=== PATIENT | male | born 1930 | race Caucasian/White ===

== ENCOUNTER 2017-03-27 14:51 | Inpatient (IN) | payer MEDICARE, OTHER ==
[~2017-03-27] VITALS: Ht 182.9 cm; Wt 90.2 kg
[2017-03-27] MEDS ORDERED: GABA300C10 PO (15:21)
[2017-03-27] MEDS ORDERED: TAMS0.4C2 PO (15:21)
[2017-03-27] MEDS ORDERED: LEVO25TA4 PO (15:21)
[2017-03-27] MEDS ORDERED: APIX5TAB PO (15:21)
[2017-03-27] MEDS ORDERED: ATOR40TA78 PO (15:21)
[2017-03-27] MEDS ORDERED: CALC1TAB2 PO (15:21)
[2017-03-27] MEDS ORDERED: METF500T4 PO (15:21)
[2017-03-27] MEDS ORDERED: CHOL200074 PO (15:21)
[2017-03-27] MEDS ORDERED: MULT-717 PO (15:21)
[2017-03-27] MEDS ORDERED: LISI-167 PO (15:21)
[2017-03-27] MEDS ORDERED: METO50TA82 PO (15:21)
[2017-03-27] MEDS ORDERED: SODIUM CHLORIDE FLUSH 10ML SYR IVF ONE (15:30)
[2017-03-27 15:39] LABS: MEAN CORPUSCULAR HEMOGLOBIN 27.7 pg (27.5-34.5); MEAN CORPUSCULAR HGB CONC 33.2 g/dL (33.2-36.2); MEAN CORPUSCULAR VOLUME 83.4 fL (81-97); MEAN PLATELET VOLUME 9.7 fL (7.4-10.4); PLATELET COUNT 165 x10^3/uL (130-400); RED BLOOD COUNT 5.19 x10^6/uL (4.38-5.82); RED CELL DISTRIBUTION WIDTH 16.5 % (9.4-14.8)
[2017-03-27 15:42] LABS: INTERNATIONAL NORMALIZED RATIO 1.16 (0.93-1.1)
[2017-03-27 15:45] LABS: ALANINE AMINOTRANSFERASE 382 U/L (12-78); ALBUMIN 2.8 g/dL (3.4-5.0); ANION GAP 9 mmol/L (5-15); CALCIUM 8.4 mg/dL (8.5-10.1); CHLORIDE 106 mmol/L (98-107); CREATININE 1.01 mg/dL (0.7-1.3)
[2017-03-27 15:47] LABS: ALKALINE PHOSPHATASE 157 U/L (45-117); BILIRUBIN,TOTAL 2.3 mg/dL (0.2-1.0); TOTAL PROTEIN 7.2 g/dL (6.4-8.2)
[2017-03-27 15:50] LABS: TROPONIN I < 0.015 ng/mL (0.000-0.045)
[2017-03-27 15:52] LABS: MD YES
[2017-03-27 15:55] LABS: <PLATELET ESTIMATE> ADEQUATE; <RBC MORPHOLOGY> NORMAL; LYMPH#(MANUAL) 0.98 x10^3/uL (1-3.4); LYMPHS% (MANUAL) 5 % (22-44); MONOS#(MANUAL) 3.51 x10^3/uL (0.3-2.7); MONOS% (MANUAL) 18 % (2-9); SEG#(MANUAL) 15.02 x10^3/uL (1.8-6.8); SEGS% (MANUAL) 77 % (42-75)
[2017-03-27 15:56] LABS: LARGE PLATELETS 1+
[2017-03-27] MEDS ORDERED: OMNIPAQUE 350 MG/ML, 100ML BOTTLE ONE (16:18)
[2017-03-27] MEDS ORDERED: hydrALAzine 20 MG/ML, 1ML IVPush PRN (18:30)
[2017-03-27] MEDS ORDERED: ONDANSETRON 2MG/ML, 2ML IVPush PRN (18:30)
[2017-03-27] MEDS ORDERED: BISACODYL 10 MG SUPP PR PRN (18:30)
[2017-03-27 18:35] LABS: HEMOGLOBIN A1C 6.5 % (4.2-6.3)
[2017-03-27] MEDS ORDERED: HEPARIN 5,000 UNITS/ML, 1ML ONE (19:28)
[2017-03-27] MEDS: SODIUM CHLORIDE 0.9% 1,000 ML IV SCH (19:35)
[2017-03-27] MEDS: HEPARIN 5,000 UNITS/ML, 1ML SQ SCH (19:35)
[2017-03-27] MEDS: INSULIN ASPART 100 UNITS/ML, PEN SQ-INSULIN SCH (19:44)
[2017-03-27] MEDS ORDERED: MAGNESIUM SULFATE PMX 2GM/50ML 50 ML IV ONE (20:30)
[2017-03-27 21:10] VITALS: BP 165/80
[2017-03-27] MEDS: morphine SULFATE 10 MG/ML, 1ML IVPush PRN (22:35)
[2017-03-27 22:52] VITALS: BP 165/80
[2017-03-27 23:08] LABS: MICROSCOPIC NOT IND
[2017-03-27 23:23] LABS: CULTURE INDICATED? NO
[2017-03-28 02:56] VITALS: BP 133/64
[2017-03-28] MEDS: HEPARIN 5,000 UNITS/ML, 1ML SQ SCH ×3 (03:07→16:37)
[2017-03-28] MEDS: morphine SULFATE 10 MG/ML, 1ML IVPush PRN ×4 (03:10→20:46)
[2017-03-28] MEDS: INSULIN ASPART 100 UNITS/ML, PEN SQ-INSULIN SCH ×4 (03:11→20:00)
[2017-03-28 05:24] LABS: CHLORIDE 109 mmol/L (98-107)
[2017-03-28 05:32] LABS: ALANINE AMINOTRANSFERASE 286 U/L (12-78); ALBUMIN 2.5 g/dL (3.4-5.0); ALKALINE PHOSPHATASE 134 U/L (45-117); ANION GAP 8 mmol/L (5-15); BILIRUBIN,TOTAL 1.1 mg/dL (0.2-1.0); CALCIUM 7.8 mg/dL (8.5-10.1); CREATININE 0.81 mg/dL (0.7-1.3); TOTAL PROTEIN 6.4 g/dL (6.4-8.2)
[2017-03-28 06:12] LABS: MEAN CORPUSCULAR HEMOGLOBIN 27.2 pg (27.5-34.5); MEAN CORPUSCULAR HGB CONC 32.7 g/dL (33.2-36.2); MEAN CORPUSCULAR VOLUME 83.3 fL (81-97); MEAN PLATELET VOLUME 10.3 fL (7.4-10.4); PLATELET COUNT 167 x10^3/uL (130-400); RED CELL DISTRIBUTION WIDTH 16.1 % (9.4-14.8)
[2017-03-28 06:29] LABS: BASOPHILS # (AUTO) 0.03 x10^3/uL (0-0.1); BASOPHILS % (AUTO) 0 % (0-1); EOSINOPHILS % (AUTO) 0 % (1-7); LYMPHOCYTES # (AUTO) 1.61 x10^3/uL (1-3.4); LYMPHOCYTES % (AUTO) 10 % (22-44); MD SCAN; MONOCYTES % (AUTO) 18 % (2-9); NEUTROPHILS # (AUTO) 12.38 x10^3/uL (1.8-6.8); NEUTROPHILS % (AUTO) 73 % (42-75)
[2017-03-28] MEDS: SODIUM CHLORIDE 0.9% 1,000 ML IV SCH ×3 (08:07→23:12)
[2017-03-28 08:30] VITALS: BP 149/67
[2017-03-28 14:45] VITALS: BP 149/74
[2017-03-28 16:30] LABS: TROPONIN I < 0.015 ng/mL (0.000-0.045)
[2017-03-28 18:57] VITALS: BP 137/72
[2017-03-28 21:20] LABS: TROPONIN I < 0.015 ng/mL (0.000-0.045)
[2017-03-29] MEDS: HEPARIN 5,000 UNITS/ML, 1ML SQ SCH ×3 (01:47→16:30)
[2017-03-29] MEDS: INSULIN ASPART 100 UNITS/ML, PEN SQ-INSULIN SCH ×4 (01:48→20:08)
[2017-03-29 02:43] VITALS: BP 142/79
[2017-03-29 06:58] VITALS: BP 162/78
[2017-03-29 07:08] LABS: MEAN CORPUSCULAR HEMOGLOBIN 28.3 pg (27.5-34.5); MEAN CORPUSCULAR HGB CONC 33.7 g/dL (33.2-36.2); MEAN CORPUSCULAR VOLUME 83.9 fL (81-97); MEAN PLATELET VOLUME 9.4 fL (7.4-10.4); PLATELET COUNT 149 x10^3/uL (130-400); RED BLOOD COUNT 5.31 x10^6/uL (4.38-5.82); RED CELL DISTRIBUTION WIDTH 16.4 % (9.4-14.8)
[2017-03-29 07:09] LABS: MD YES
[2017-03-29 07:16] LABS: ALANINE AMINOTRANSFERASE 171 U/L (12-78); ALBUMIN 2.5 g/dL (3.4-5.0); ANION GAP 8 mmol/L (5-15); CALCIUM 7.9 mg/dL (8.5-10.1); CHLORIDE 112 mmol/L (98-107); CREATININE 0.77 mg/dL (0.7-1.3)
[2017-03-29 07:18] LABS: ALKALINE PHOSPHATASE 115 U/L (45-117); BILIRUBIN,TOTAL 0.9 mg/dL (0.2-1.0); TOTAL PROTEIN 6.6 g/dL (6.4-8.2)
[2017-03-29 07:25] LABS: ANISOCYTOSIS 1+; BAND#(MANUAL) 0.77 x10^3/uL; BANDS%(MANUAL) 4 % (0-7); EOS#(MANUAL) 0.19 x10^3/uL (0.0-0.4); EOS% (MANUAL) 1 % (1-7); LYMPH#(MANUAL) 1.73 x10^3/uL (1-3.4); LYMPHS% (MANUAL) 9 % (22-44); MONOS#(MANUAL) 3.46 x10^3/uL (0.3-2.7); MONOS% (MANUAL) 18 % (2-9); SEG#(MANUAL) 13.06 x10^3/uL (1.8-6.8); SEGS% (MANUAL) 68 % (42-75)
[2017-03-29 07:26] LABS: <PLATELET ESTIMATE> ADEQUATE; <PLT MORPHOLOGY> NORMAL PLT MORPH; POLYCHROMASIA 1+
[2017-03-29] MEDS: SODIUM CHLORIDE 0.9% 1,000 ML IV SCH (07:58)
[2017-03-29] MEDS ORDERED: REGADENOSON 0.4 MG/5 ML SYRINGE ONE (08:09)
[2017-03-29 09:43] LABS: INTERNATIONAL NORMALIZED RATIO 1.17 (0.93-1.1); PROTHROMBIN TIME 12.1 Seconds (9.6-11.5)
[2017-03-29] MEDS: TAMSULOSIN 0.4 MG CAP.ER.24H PO SCH (11:30)
[2017-03-29] MEDS: LEVOTHYROXINE 25 MCG TABLET PO SCH (11:38)
[2017-03-29] MEDS: LISINOPRIL 10 MG TABLET PO SCH (11:38)
[2017-03-29 14:45] VITALS: BP 151/71
[2017-03-29] MEDS ORDERED: SODIUM CHLORIDE 0.9% 1,000 ML IV SCH (18:06)
[2017-03-29 19:34] VITALS: BP 159/79
[2017-03-29] MEDS: METOPROLOL TARTRATE 50 MG TABLET PO SCH (20:06)
[2017-03-30] VITALS (8 sets, daily range): BP systolic 116–166; BP diastolic 67–84
[2017-03-30] MEDS: HEPARIN 5,000 UNITS/ML, 1ML SQ SCH ×3 (01:00→17:00)
[2017-03-30] MEDS: INSULIN ASPART 100 UNITS/ML, PEN SQ-INSULIN SCH ×4 (02:18→21:24)
[2017-03-30 05:58] LABS: MEAN CORPUSCULAR HEMOGLOBIN 29.2 pg (27.5-34.5); MEAN CORPUSCULAR HGB CONC 34.1 g/dL (33.2-36.2); MEAN CORPUSCULAR VOLUME 85.7 fL (81-97); MEAN PLATELET VOLUME 10.4 fL (7.4-10.4); PLATELET COUNT 139 x10^3/uL (130-400); RED BLOOD COUNT 4.92 x10^6/uL (4.38-5.82); RED CELL DISTRIBUTION WIDTH 16.5 % (9.4-14.8)
[2017-03-30 06:10] LABS: ALBUMIN 2.4 g/dL (3.4-5.0); ANION GAP 9 mmol/L (5-15); CALCIUM 7.8 mg/dL (8.5-10.1); CHLORIDE 111 mmol/L (98-107)
[2017-03-30 06:13] LABS: ALANINE AMINOTRANSFERASE 114 U/L (12-78); ALKALINE PHOSPHATASE 104 U/L (45-117); BILIRUBIN,TOTAL 1.2 mg/dL (0.2-1.0); CREATININE 0.66 mg/dL (0.7-1.3); TOTAL PROTEIN 6.5 g/dL (6.4-8.2)
[2017-03-30] MEDS ORDERED: BUPIVACAINE/PF 0.25% ONE (06:25)
[2017-03-30] MEDS ORDERED: EPINEPHRINE 1 MG/ML, 1ML ONE (06:26)
[2017-03-30 06:44] LABS: MD YES
[2017-03-30 06:47] LABS: BAND#(MANUAL) 0.16 x10^3/uL; BANDS%(MANUAL) 1 % (0-7); EOS#(MANUAL) 0.16 x10^3/uL (0.0-0.4); EOS% (MANUAL) 1 % (1-7); LYMPH#(MANUAL) 2.27 x10^3/uL (1-3.4); LYMPHS% (MANUAL) 14 % (22-44); MONOS#(MANUAL) 2.92 x10^3/uL (0.3-2.7); MONOS% (MANUAL) 18 % (2-9); SEG#(MANUAL) 10.69 x10^3/uL (1.8-6.8); SEGS% (MANUAL) 66 % (42-75)
[2017-03-30 06:49] LABS: <PLATELET ESTIMATE> ADEQUATE; ANISOCYTOSIS 1+; LARGE PLATELETS 1+; POLYCHROMASIA 1+
[2017-03-30] MEDS ORDERED: LIDOCAINE-MPF 2% ,5ML ONE (06:54)
[2017-03-30] MEDS ORDERED: PROPOFOL 10 MG/ML, 20ML ONE (06:54)
[2017-03-30] MEDS ORDERED: ROCURONIUM 10 MG/ML,10ML ONE (06:55)
[2017-03-30] MEDS ORDERED: FENTANYL PF 100 MCG/2ML ONE (07:25)
[2017-03-30] MEDS ORDERED: CEFOTETAN PMX 2GM/50ML 50 ML ONE (07:25)
[2017-03-30] MEDS ORDERED: BUPIVACAINE/PF-EPI 0.25% 1:200K IM ONE (07:26)
[2017-03-30] MEDS ORDERED: ONDANSETRON 2MG/ML, 2ML ONE (07:30)
[2017-03-30] MEDS ORDERED: DEXAMETHASONE 4 MG/ML, 1ML ONE (07:30)
[2017-03-30] MEDS ORDERED: NEOSTIGMINE 1 MG/ML, 10ML ONE (07:41)
[2017-03-30] MEDS ORDERED: GLYCOPYRROLATE 0.2MG/1ML, 5ML ONE (07:42)
[2017-03-30] MEDS ORDERED: FENTANYL PF 100 MCG/2ML IV PRN (08:00)
[2017-03-30] MEDS ORDERED: morphine SULFATE 10 MG/ML, 1ML IV PRN (08:00)
[2017-03-30] MEDS ORDERED: ONDANSETRON 2MG/ML, 2ML IVPush PRN (08:00)
[2017-03-30] MEDS ORDERED: HYDROcodone/APAP 7.5-325MG/15ML UDC ONE (08:26)
[2017-03-30] MEDS ORDERED: HYDROcodone/APAP 7.5-325MG/15ML UDC PO PRN (08:30)
[2017-03-30] MEDS ORDERED: HYDROcodone/APAP 5/325 TABLET PO PRN (09:30)
[2017-03-30] MEDS ORDERED: SODIUM CHLORIDE 0.9%, 500ML IV PRN (09:30)
[2017-03-30] MEDS: LEVOTHYROXINE 25 MCG TABLET PO SCH (09:40)
[2017-03-30] MEDS: TAMSULOSIN 0.4 MG CAP.ER.24H PO SCH (09:40)
[2017-03-30] MEDS: LACTATED RINGERS 1,000 ML IV SCH ×2 (09:41→23:02)
[2017-03-30] MEDS: LISINOPRIL 10 MG TABLET PO SCH (12:53)
[2017-03-30] MEDS: METOPROLOL TARTRATE 50 MG TABLET PO SCH (21:25)
[2017-03-31 02:00] VITALS: BP 169/83
[2017-03-31] MEDS: LEVOTHYROXINE 25 MCG TABLET PO SCH (05:12)
[2017-03-31] MEDS: HEPARIN 5,000 UNITS/ML, 1ML SQ SCH (05:13)
[2017-03-31 05:50] LABS: MEAN CORPUSCULAR HGB CONC 34.1 g/dL (33.2-36.2); MEAN CORPUSCULAR VOLUME 87.9 fL (81-97); RED BLOOD COUNT 4.43 x10^6/uL (4.38-5.82); RED CELL DISTRIBUTION WIDTH 16.6 % (9.4-14.8)
[2017-03-31 05:54] LABS: CHLORIDE 107 mmol/L (98-107)
[2017-03-31 06:09] LABS: ANION GAP 6 mmol/L (5-15); CALCIUM 7.9 mg/dL (8.5-10.1); CREATININE 0.71 mg/dL (0.7-1.3); MD YES
[2017-03-31 06:10] LABS: ALANINE AMINOTRANSFERASE 92 U/L (12-78); ALBUMIN 2.3 g/dL (3.4-5.0); ALKALINE PHOSPHATASE 99 U/L (45-117); BILIRUBIN,TOTAL 0.9 mg/dL (0.2-1.0); MEAN PLATELET VOLUME 10.8 fL (7.4-10.4); PLATELET COUNT 137 x10^3/uL (130-400); TOTAL PROTEIN 6.2 g/dL (6.4-8.2)
[2017-03-31 06:12] LABS: BAND#(MANUAL) 0.16 x10^3/uL; BANDS%(MANUAL) 1 % (0-7); LYMPHS% (MANUAL) 12 % (22-44); MONOS#(MANUAL) 3.79 x10^3/uL (0.3-2.7); MONOS% (MANUAL) 24 % (2-9); SEG#(MANUAL) 9.95 x10^3/uL (1.8-6.8); SEGS% (MANUAL) 63 % (42-75)
[2017-03-31 06:13] LABS: <PLATELET ESTIMATE> ADEQUATE; ANISOCYTOSIS 1+; LARGE PLATELETS 1+; POLYCHROMASIA 1+
[2017-03-31] MEDS: INSULIN ASPART 100 UNITS/ML, PEN SQ-INSULIN SCH ×3 (07:00→16:00)
[2017-03-31 07:42] VITALS: BP 153/85
[2017-03-31] MEDS ORDERED: APIXABAN 5 MG TABLET PO SCH (09:00)
[2017-03-31] MEDS: TAMSULOSIN 0.4 MG CAP.ER.24H PO SCH (09:20)
[2017-03-31] MEDS ORDERED: POLYETHYLENE GLYCOL 17 GM PACKET NG PRN (09:30)
[2017-03-31] MEDS ORDERED: DOCUSATE 100 MG CAPSULE PO PRN (09:30)
[2017-03-31] MEDS: LISINOPRIL 10 MG TABLET PO SCH (13:35)
[2017-03-31 14:30] VITALS: BP 122/72
[2017-03-31] MEDS: METOPROLOL TARTRATE 50 MG TABLET PO SCH (17:44)
[2017-03-31] MEDS ORDERED: ACET325T14 PO (18:31)
[2017-03-31 19:01] VITALS: BP 121/68
== END 2017-03-31 20:43 | disposition home or self-care (01) | DRG 417 ==
LOC: ED 16:48 → EDIP 18:06 → 4EST 21:01
PROVIDERS: ADMIT Hospitalist; ATTEND Internal Medicine
PROC: 0FT44ZZ Resection of Gallbladder, Percutaneous Endoscopic Approach (ICD-10-PCS; principal; 2017-03-30 07:00)
DX: K80.64 Calculus of gallbladder and bile duct with chronic cholecystitis without obstruction (principal); K85.10 Biliary acute pancreatitis without necrosis or infection; E44.0 Moderate protein-calorie malnutrition; D68.69 Other thrombophilia; I48.2 Chronic atrial fibrillation; N28.1 Cyst of kidney, acquired; E11.9 Type 2 diabetes mellitus without complications; E03.9 Hypothyroidism, unspecified; E78.5 Hyperlipidemia, unspecified; I10 Essential (primary) hypertension; R74.0 Nonspecific elevation of levels of transaminase and lactic acid dehydrogenase [LDH]; Z79.01 Long term (current) use of anticoagulants; M19.90 Unspecified osteoarthritis, unspecified site; Z88.8 Allergy status to other drugs, medicaments and biological substances; Z79.84 Long term (current) use of oral hypoglycemic drugs; Z95.0 Presence of cardiac pacemaker
CPT/HCPCS: 36415; 71045; 74177; 76700; 78452; 80053; 81003; 82962; 83036; 83690; 83735; 84484; 85025; 85610; 85730; 88304; 93005; 93017; J0171; J1100; J1644; J2405; J2704; J2710; J2785; J3010; J3490; Q9967; A9502; C9898; J2270; J3475; J7030; J7120; S0074

== ENCOUNTER 2017-11-17 14:42 | Inpatient (IN) | payer MEDICARE ==
[~2017-11-17] VITALS: Ht 182.9 cm; Wt 84.8 kg
[~2017-11-17 14:42] MED LIST: ACET325T14 PO; APIX5TAB PO; ATOR40TA78 PO; CALC1TAB2 PO; CHOL200074 PO; GABA300C10 PO; LEVO25TA4 PO; LISI-167 PO; METF500T17 PO; METO50TA82 PO; MULT-717 PO; TAMS0.4C2 PO
[2017-11-17 15:34] LABS: ALANINE AMINOTRANSFERASE 44 U/L (12-78); ALBUMIN 3.1 g/dL (3.4-5.0); ANION GAP 8 mmol/L (5-15); CALCIUM 8.3 mg/dL (8.5-10.1); CHLORIDE 107 mmol/L (98-107); CREATININE 1.17 mg/dL (0.7-1.3)
[2017-11-17 15:39] LABS: ALKALINE PHOSPHATASE 97 U/L (45-117); BILIRUBIN,TOTAL 0.4 mg/dL (0.2-1.0); TOTAL PROTEIN 7.4 g/dL (6.4-8.2); TROPONIN I < 0.015 ng/mL (0.000-0.045)
[2017-11-17] MEDS ORDERED: LISI2.5T PO (15:50)
[2017-11-17] MEDS ORDERED: CLOT15CR6 TP (15:50)
[2017-11-17 15:54] LABS: MEAN CORPUSCULAR HEMOGLOBIN 29.3 pg (27.5-34.5); MEAN CORPUSCULAR HGB CONC 34.3 g/dL (33.2-36.2); MEAN CORPUSCULAR VOLUME 85.6 fL (81-97); MEAN PLATELET VOLUME 7.9 fL (7.4-10.4); PLATELET COUNT 199 x10^3/uL (130-400); RED BLOOD COUNT 3.33 x10^6/uL (4.38-5.82); RED CELL DISTRIBUTION WIDTH 18.5 % (9.4-14.8)
[2017-11-17 15:57] LABS: MD YES
[2017-11-17 16:05] LABS: METAMYELOCYTES# (MANUAL) 3.53 x10^3/uL (0-0); METAMYELOCYTES% (MANUAL) 6 % (0-1); MONOS#(MANUAL) 1.18 x10^3/uL (0.3-2.7); MONOS% (MANUAL) 2 % (2-9); MYELOCYTES# (MANUAL) 4.71 x10^3/uL (0-0); MYELOCYTES% (MANUAL) 8 % (0-0); PROGRANULOCYTES# (MANUAL) 0.59 x10^3/uL (0-0); PROGRANULOCYTES% (MANUAL) 1 % (0-0)
[2017-11-17 16:06] LABS: BAND#(MANUAL) 5.89 x10^3/uL; BANDS%(MANUAL) 10 % (0-7); LYMPH#(MANUAL) 5.89 x10^3/uL (1-3.4); LYMPHS% (MANUAL) 10 % (22-44); SEGS% (MANUAL) 63 % (42-75)
[2017-11-17 16:07] LABS: <PLATELET ESTIMATE> ADEQUATE; ANISOCYTOSIS 1+; POLYCHROMASIA 1+
[2017-11-17 16:08] LABS: LARGE PLATELETS 1+
[2017-11-17 16:43] LABS: MICROSCOPIC NOT IND
[2017-11-17 16:48] LABS: CULTURE INDICATED? NO
[2017-11-17] MEDS ORDERED: SODIUM CHLORIDE FLUSH 10ML SYR IVF PRN (17:30)
[2017-11-17] MEDS ORDERED: ACETAMINOPHEN 325 MG TABLET PO PRN (18:00)
[2017-11-17] MEDS ORDERED: ONDANSETRON 2MG/ML, 2ML IVPush PRN (18:00)
[2017-11-17] MEDS ORDERED: GLUCAGON 1 MG IM PRN (18:00)
[2017-11-17] MEDS ORDERED: POLYETHYLENE GLYCOL 17 GM PACKET PO PRN (18:00)
[2017-11-17] MEDS ORDERED: DEXTROSE 50%, 50ML SYRINGE IVPush PRN (18:00)
[2017-11-17] MEDS ORDERED: DEXTROSE 4 GM TAB.CHEW PO PRN (18:00)
[2017-11-17] MEDS ORDERED: ONDANSETRON ODT 4 MG PO PRN (18:00)
[2017-11-17] MEDS ORDERED: DOCUSATE 100 MG CAPSULE PO PRN (18:00)
[2017-11-17 18:08] VITALS: BP 156/71
[2017-11-17] MEDS: INSULIN LISPRO 100 UNITS/ML, PEN SQ-INSULIN SCH ×2 (18:12→21:00)
[2017-11-17] MEDS: SODIUM CHLORIDE 0.9% 1,000 ML IV SCH (18:19)
[2017-11-17] MEDS: CALCIUM/VITAMIN D3 250-125 TABLET PO SCH (18:35)
[2017-11-17] MEDS: CHOLECALCIFEROL 1,000 UNIT TABLET PO SCH (18:35)
[2017-11-17] MEDS ORDERED: HEPARIN 5,000 UNITS/ML, 1ML IV ONE (19:00)
[2017-11-17] MEDS ORDERED: HEPARIN 5,000 UNITS/ML, 1ML IV PRN (19:00)
[2017-11-17 19:48] LABS: HEMOGLOBIN A1C 6.5 % (4.2-6.3)
[2017-11-17 20:01] VITALS: BP 145/61
[2017-11-17] MEDS: HEPARIN 25,000 UNITS/500ML PMX 500 ML IV PRN (22:56)
[2017-11-17] MEDS: SODIUM CHLORIDE FLUSH 10ML SYR IVF SCH (23:05)
[2017-11-17] MEDS: ATORVASTATIN 10 MG TABLET PO SCH (23:06)
[2017-11-17] MEDS: CLOTRIM/BETAMETH 1%/0.05% CRM TP SCH (23:06)
[2017-11-17] MEDS: GABAPENTIN 300 MG CAPSULE PO SCH (23:06)
[2017-11-18] VITALS (9 sets, daily range): BP systolic 104–149; BP diastolic 54–77
[2017-11-18 05:21] LABS: ALANINE AMINOTRANSFERASE 37 U/L (12-78); ALBUMIN 2.6 g/dL (3.4-5.0); ANION GAP 9 mmol/L (5-15); CALCIUM 8.4 mg/dL (8.5-10.1); CHLORIDE 109 mmol/L (98-107)
[2017-11-18 05:23] LABS: ALKALINE PHOSPHATASE 80 U/L (45-117); BILIRUBIN,TOTAL 0.4 mg/dL (0.2-1.0); TOTAL PROTEIN 6.3 g/dL (6.4-8.2)
[2017-11-18 05:46] LABS: MEAN CORPUSCULAR HEMOGLOBIN 28.7 pg (27.5-34.5); MEAN CORPUSCULAR HGB CONC 33.2 g/dL (33.2-36.2); MEAN CORPUSCULAR VOLUME 86.5 fL (81-97); MEAN PLATELET VOLUME 8.3 fL (7.4-10.4); PLATELET COUNT 166 x10^3/uL (130-400); RED CELL DISTRIBUTION WIDTH 18.9 % (9.4-14.8)
[2017-11-18 06:06] LABS: MD YES
[2017-11-18 06:08] LABS: ANISOCYTOSIS 1+; BAND#(MANUAL) 1.94 x10^3/uL; BANDS%(MANUAL) 4 % (0-7); LYMPH#(MANUAL) 5.83 x10^3/uL (1-3.4); LYMPHS% (MANUAL) 12 % (22-44); METAMYELOCYTES# (MANUAL) 1.94 x10^3/uL (0-0); METAMYELOCYTES% (MANUAL) 4 % (0-1); MONOS#(MANUAL) 0.97 x10^3/uL (0.3-2.7); MONOS% (MANUAL) 2 % (2-9); NRBC % (MANUAL) 2 % (0-1); SEG#(MANUAL) 37.91 x10^3/uL (1.8-6.8); SEGS% (MANUAL) 78 % (42-75)
[2017-11-18 06:09] LABS: <PLATELET ESTIMATE> ADEQUATE; LARGE PLATELETS 1+; POLYCHROMASIA 1+
[2017-11-18] MEDS: INSULIN LISPRO 100 UNITS/ML, PEN SQ-INSULIN SCH ×4 (07:43→21:00)
[2017-11-18] MEDS: METOPROLOL TARTRATE 50 MG TABLET PO SCH (08:34)
[2017-11-18] MEDS: GABAPENTIN 300 MG CAPSULE PO SCH ×2 (08:34→21:11)
[2017-11-18] MEDS: MULTIVITAMINS/MINERALS TABLET PO SCH (08:36)
[2017-11-18] MEDS: LISINOPRIL 5 MG TABLET PO SCH (08:38)
[2017-11-18] MEDS: SODIUM CHLORIDE FLUSH 10ML SYR IVF SCH ×2 (09:00→21:11)
[2017-11-18] MEDS ORDERED: LIDOCAINE-MPF 2%, 2ML ONE (09:18)
[2017-11-18] MEDS ORDERED: FENTANYL PF 100 MCG/2ML ONE (09:37)
[2017-11-18] MEDS: SODIUM CHLORIDE 0.9% 1,000 ML IV SCH (09:38)
[2017-11-18] MEDS ORDERED: FLUMAZENIL 0.1 MG/1 ML, 5ML ONE (09:38)
[2017-11-18] MEDS ORDERED: MIDAZOLAM 1 MG/ML, 5ML ONE (09:38)
[2017-11-18] MEDS ORDERED: NALOXONE 1 MG/ML, 2ML ONE (09:38)
[2017-11-18] MEDS: LEVOTHYROXINE 25 MCG TABLET PO SCH (09:40)
[2017-11-18 09:48] LABS: FREE T4 (FREE THYROXINE) 1.21 ng/dL (0.76-1.46); THYROID STIMULATING HORMONE 3.93 mIU/L (0.358-3.740)
[2017-11-18] MEDS ORDERED: MAGNESIUM SULFATE PMX 4GM/100M 100 ML IV ONE (10:00)
[2017-11-18 11:36] LABS: ABSOLUTE RETICS # 0.072 x10^6/uL (0.5-1.5); RETICULOCYTE COUNT % 3.32 % (0.5-1.5)
[2017-11-18 11:39] LABS: RED BLOOD COUNT 2.17 x10^6/uL (4.38-5.82)
[2017-11-18] MEDS: CLOTRIM/BETAMETH 1%/0.05% CRM TP SCH ×2 (11:42→11:43)
[2017-11-18] MEDS: CHOLECALCIFEROL 1,000 UNIT TABLET PO SCH (12:50)
[2017-11-18 16:36] LABS: OCCULT BLOOD POSITIVE (NEGATIVE)
[2017-11-18] MEDS: CALCIUM/VITAMIN D3 250-125 TABLET PO SCH (17:06)
[2017-11-18] MEDS ORDERED: SODIUM CHLORIDE 0.9% 1,000 ML IV SCH (17:41)
[2017-11-18 17:42] LABS: HEMOGRAM NOTE RECHECKED
[2017-11-18] MEDS: TAMSULOSIN 0.4 MG CAP.ER.24H PO SCH (21:11)
[2017-11-18] MEDS: ATORVASTATIN 10 MG TABLET PO SCH (21:11)
[2017-11-19] VITALS (12 sets, daily range): BP systolic 95–145; BP diastolic 7–77
[2017-11-19] MEDS: HEPARIN 25,000 UNITS/500ML PMX 500 ML IV PRN (04:20)
[2017-11-19 05:16] LABS: ALANINE AMINOTRANSFERASE 36 U/L (12-78); ALBUMIN 2.6 g/dL (3.4-5.0); ANION GAP 10 mmol/L (5-15); CALCIUM 7.7 mg/dL (8.5-10.1); CHLORIDE 111 mmol/L (98-107)
[2017-11-19 05:19] LABS: ALKALINE PHOSPHATASE 88 U/L (45-117); BILIRUBIN,TOTAL 0.4 mg/dL (0.2-1.0); TOTAL PROTEIN 6.3 g/dL (6.4-8.2)
[2017-11-19] MEDS: LEVOTHYROXINE 25 MCG TABLET PO SCH (06:07)
[2017-11-19 06:08] LABS: MEAN CORPUSCULAR HEMOGLOBIN 29.6 pg (27.5-34.5); MEAN CORPUSCULAR HGB CONC 33.3 g/dL (33.2-36.2); MEAN CORPUSCULAR VOLUME 88.7 fL (81-97); MEAN PLATELET VOLUME 8.3 fL (7.4-10.4); PLATELET COUNT 161 x10^3/uL (130-400); RED BLOOD COUNT 2.87 x10^6/uL (4.38-5.82); RED CELL DISTRIBUTION WIDTH 18.4 % (9.4-14.8)
[2017-11-19 06:55] LABS: MD YES
[2017-11-19 06:57] LABS: BAND#(MANUAL) 1.92 x10^3/uL; BANDS%(MANUAL) 4 % (0-7); LYMPH#(MANUAL) 7.22 x10^3/uL (1-3.4); LYMPHS% (MANUAL) 15 % (22-44); METAMYELOCYTES# (MANUAL) 0.96 x10^3/uL (0-0); METAMYELOCYTES% (MANUAL) 2 % (0-1); MONOS#(MANUAL) 1.92 x10^3/uL (0.3-2.7); MONOS% (MANUAL) 4 % (2-9); SEG#(MANUAL) 36.08 x10^3/uL (1.8-6.8); SEGS% (MANUAL) 75 % (42-75)
[2017-11-19 06:58] LABS: <PLATELET ESTIMATE> ADEQUATE; ANISOCYTOSIS 1+; LARGE PLATELETS 1+; POLYCHROMASIA 1+
[2017-11-19] MEDS: INSULIN LISPRO 100 UNITS/ML, PEN SQ-INSULIN SCH ×4 (07:59→21:25)
[2017-11-19] MEDS: CLOTRIM/BETAMETH 1%/0.05% CRM TP SCH ×2 (08:56→21:00)
[2017-11-19] MEDS: SODIUM CHLORIDE FLUSH 10ML SYR IVF SCH ×2 (09:00→21:00)
[2017-11-19] MEDS: METOPROLOL TARTRATE 50 MG TABLET PO SCH (09:09)
[2017-11-19] MEDS: MULTIVITAMINS/MINERALS TABLET PO SCH (09:09)
[2017-11-19] MEDS: GABAPENTIN 300 MG CAPSULE PO SCH ×2 (09:09→21:26)
[2017-11-19] MEDS: LISINOPRIL 5 MG TABLET PO SCH (09:10)
[2017-11-19] MEDS: CHOLECALCIFEROL 1,000 UNIT TABLET PO SCH (12:21)
[2017-11-19] MEDS: CALCIUM/VITAMIN D3 250-125 TABLET PO SCH (17:31)
[2017-11-19] MEDS: SODIUM CHLORIDE 0.9% 1,000 ML IV SCH (17:41)
[2017-11-19] MEDS: TAMSULOSIN 0.4 MG CAP.ER.24H PO SCH (21:25)
[2017-11-19] MEDS: APIXABAN 5 MG TABLET PO SCH (21:26)
[2017-11-19] MEDS: ATORVASTATIN 10 MG TABLET PO SCH (21:26)
[2017-11-20] VITALS (11 sets, daily range): BP systolic 104–148; BP diastolic 50–75
[2017-11-20] MEDS: SODIUM CHLORIDE 0.9% 1,000 ML IV SCH ×2 (03:30→13:59)
[2017-11-20] MEDS: LEVOTHYROXINE 25 MCG TABLET PO SCH (05:21)
[2017-11-20 05:42] LABS: ALBUMIN 2.3 g/dL (3.4-5.0); ANION GAP 5 mmol/L (5-15); CALCIUM 7.7 mg/dL (8.5-10.1); CHLORIDE 115 mmol/L (98-107)
[2017-11-20 05:43] LABS: CREATININE 0.87 mg/dL (0.7-1.3)
[2017-11-20 06:15] LABS: MEAN CORPUSCULAR HEMOGLOBIN 30.6 pg (27.5-34.5); MEAN CORPUSCULAR VOLUME 89.9 fL (81-97); MEAN PLATELET VOLUME 8.2 fL (7.4-10.4); PLATELET COUNT 153 x10^3/uL (130-400); RED CELL DISTRIBUTION WIDTH 19.7 % (9.4-14.8)
[2017-11-20 06:36] LABS: MD YES
[2017-11-20 06:38] LABS: BAND#(MANUAL) 1.89 x10^3/uL; BANDS%(MANUAL) 5 % (0-7); LYMPH#(MANUAL) 5.28 x10^3/uL (1-3.4); LYMPHS% (MANUAL) 14 % (22-44); MONOS#(MANUAL) 1.13 x10^3/uL (0.3-2.7); MONOS% (MANUAL) 3 % (2-9)
[2017-11-20 06:39] LABS: METAMYELOCYTES# (MANUAL) 0.38 x10^3/uL (0-0); METAMYELOCYTES% (MANUAL) 1 % (0-1); SEG#(MANUAL) 29.03 x10^3/uL (1.8-6.8); SEGS% (MANUAL) 77 % (42-75)
[2017-11-20 06:40] LABS: ANISOCYTOSIS 1+; POLYCHROMASIA 1+
[2017-11-20 06:41] LABS: <PLATELET ESTIMATE> ADEQUATE; <PLT MORPHOLOGY> NORMAL PLT MORPH; NRBC % (MANUAL) 1 % (0-1)
[2017-11-20] MEDS ORDERED: POTASSIUM CHLORIDE 20 MEQ TAB.ER.PRT PO ONE (07:00)
[2017-11-20] MEDS: INSULIN LISPRO 100 UNITS/ML, PEN SQ-INSULIN SCH ×4 (07:52→20:17)
[2017-11-20] MEDS: CLOTRIM/BETAMETH 1%/0.05% CRM TP SCH ×2 (08:17→20:18)
[2017-11-20] MEDS: METOPROLOL TARTRATE 50 MG TABLET PO SCH (08:30)
[2017-11-20] MEDS: LISINOPRIL 5 MG TABLET PO SCH (08:31)
[2017-11-20] MEDS: SODIUM CHLORIDE FLUSH 10ML SYR IVF SCH ×2 (08:31→20:18)
[2017-11-20] MEDS: GABAPENTIN 300 MG CAPSULE PO SCH ×2 (08:31→20:17)
[2017-11-20] MEDS: MULTIVITAMINS/MINERALS TABLET PO SCH (08:31)
[2017-11-20] MEDS: APIXABAN 5 MG TABLET PO SCH ×2 (08:31→20:16)
[2017-11-20] MEDS: CHOLECALCIFEROL 1,000 UNIT TABLET PO SCH (12:29)
[2017-11-20 16:22] LABS: MD YES; MEAN CORPUSCULAR HEMOGLOBIN 29.4 pg (27.5-34.5); MEAN CORPUSCULAR VOLUME 86.3 fL (81-97); MEAN PLATELET VOLUME 8.4 fL (7.4-10.4); PLATELET COUNT 162 x10^3/uL (130-400); RED BLOOD COUNT 3.56 x10^6/uL (4.38-5.82); RED CELL DISTRIBUTION WIDTH 18.6 % (9.4-14.8)
[2017-11-20 16:32] LABS: BAND#(MANUAL) 3.38 x10^3/uL; BANDS%(MANUAL) 7 % (0-7); BASOS#(MANUAL) 0.48 x10^3/uL (0-0.1); BASOS% (MANUAL) 1 % (0-1); EOS#(MANUAL) 0.48 x10^3/uL (0.0-0.4); EOS% (MANUAL) 1 % (1-7); LYMPH#(MANUAL) 6.28 x10^3/uL (1-3.4); LYMPHS% (MANUAL) 13 % (22-44); METAMYELOCYTES# (MANUAL) 1.45 x10^3/uL (0-0); METAMYELOCYTES% (MANUAL) 3 % (0-1); MONOS#(MANUAL) 1.93 x10^3/uL (0.3-2.7); MONOS% (MANUAL) 4 % (2-9); NRBC % (MANUAL) 1 % (0-1); SEG#(MANUAL) 34.29 x10^3/uL (1.8-6.8); SEGS% (MANUAL) 71 % (42-75)
[2017-11-20 16:33] LABS: ANISOCYTOSIS 2+; POLYCHROMASIA 1+
[2017-11-20 16:34] LABS: ECHINOCYTES 1+; TARGET CELLS 1+
[2017-11-20 16:35] LABS: <PLATELET ESTIMATE> ADEQUATE; <PLT MORPHOLOGY> NORMAL PLT MORPH
[2017-11-20] MEDS: CALCIUM/VITAMIN D3 250-125 TABLET PO SCH (17:28)
[2017-11-20] MEDS: TAMSULOSIN 0.4 MG CAP.ER.24H PO SCH (20:17)
[2017-11-20] MEDS: ATORVASTATIN 10 MG TABLET PO SCH (20:17)
[2017-11-21] MEDS: SODIUM CHLORIDE 0.9% 1,000 ML IV SCH ×2 (00:47→10:50)
[2017-11-21 01:41] VITALS: BP 132/68
[2017-11-21 05:16] LABS: MEAN CORPUSCULAR HEMOGLOBIN 28.7 pg (27.5-34.5); MEAN CORPUSCULAR HGB CONC 33.7 g/dL (33.2-36.2); MEAN CORPUSCULAR VOLUME 85.2 fL (81-97); PLATELET COUNT 180 x10^3/uL (130-400); RED CELL DISTRIBUTION WIDTH 18.4 % (9.4-14.8)
[2017-11-21 05:26] LABS: ALBUMIN 2.5 g/dL (3.4-5.0); ANION GAP 4 mmol/L (5-15); CALCIUM 7.7 mg/dL (8.5-10.1); CHLORIDE 116 mmol/L (98-107); CREATININE 0.88 mg/dL (0.7-1.3)
[2017-11-21 05:52] LABS: MD YES
[2017-11-21 05:55] LABS: BAND#(MANUAL) 2.99 x10^3/uL; BANDS%(MANUAL) 7 % (0-7); EOS#(MANUAL) 0.43 x10^3/uL (0.0-0.4); EOS% (MANUAL) 1 % (1-7); LYMPH#(MANUAL) 5.98 x10^3/uL (1-3.4); LYMPHS% (MANUAL) 14 % (22-44); METAMYELOCYTES# (MANUAL) 0.43 x10^3/uL (0-0); METAMYELOCYTES% (MANUAL) 1 % (0-1); MONOS#(MANUAL) 1.71 x10^3/uL (0.3-2.7); MONOS% (MANUAL) 4 % (2-9); SEG#(MANUAL) 31.17 x10^3/uL (1.8-6.8); SEGS% (MANUAL) 73 % (42-75)
[2017-11-21 05:57] LABS: ANISOCYTOSIS 1+; POLYCHROMASIA 1+
[2017-11-21 05:58] LABS: <PLATELET ESTIMATE> ADEQUATE; <PLT MORPHOLOGY> NORMAL PLT MORPH
[2017-11-21] MEDS: LEVOTHYROXINE 25 MCG TABLET PO SCH (06:08)
[2017-11-21 06:32] VITALS: BP 135/69
[2017-11-21] MEDS: INSULIN LISPRO 100 UNITS/ML, PEN SQ-INSULIN SCH ×3 (07:00→16:26)
[2017-11-21] MEDS: SODIUM CHLORIDE FLUSH 10ML SYR IVF SCH (07:49)
[2017-11-21] MEDS: LISINOPRIL 5 MG TABLET PO SCH (08:10)
[2017-11-21] MEDS: METOPROLOL TARTRATE 50 MG TABLET PO SCH (08:11)
[2017-11-21] MEDS: GABAPENTIN 300 MG CAPSULE PO SCH (08:11)
[2017-11-21] MEDS: MULTIVITAMINS/MINERALS TABLET PO SCH (08:11)
[2017-11-21] MEDS: CLOTRIM/BETAMETH 1%/0.05% CRM TP SCH (08:12)
[2017-11-21] MEDS: APIXABAN 5 MG TABLET PO SCH (08:14)
[2017-11-21] MEDS: CHOLECALCIFEROL 1,000 UNIT TABLET PO SCH (11:37)
[2017-11-21 12:36] VITALS: BP 136/71
[2017-11-21] MEDS: CALCIUM/VITAMIN D3 250-125 TABLET PO SCH (16:59)
== END 2017-11-21 18:54 | disposition home or self-care (01) | DRG 841 ==
LOC: ED 15:11 → EDIP 17:14 → 3NW 18:00 → 4WST 20:20
PROVIDERS: ADMIT Hospitalist; ATTEND Hospitalist
PROC: 07DR3ZX Extraction of Iliac Bone Marrow, Percutaneous Approach, Diagnostic (ICD-10-PCS; principal; 2017-11-18)
PROC: 30233N1 Transfusion of Nonautologous Red Blood Cells into Peripheral Vein, Percutaneous Approach (ICD-10-PCS; 2017-11-20)
DX: C92.10 Chronic myeloid leukemia, BCR/ABL-positive, not having achieved remission (principal); E44.1 Mild protein-calorie malnutrition; D68.59 Other primary thrombophilia; K92.2 Gastrointestinal hemorrhage, unspecified; Z68.25 Body mass index [BMI] 25.0-25.9, adult; E11.9 Type 2 diabetes mellitus without complications; I10 Essential (primary) hypertension; I48.2 Chronic atrial fibrillation; D64.9 Anemia, unspecified; I48.0 Paroxysmal atrial fibrillation; M19.90 Unspecified osteoarthritis, unspecified site; E03.9 Hypothyroidism, unspecified; E86.0 Dehydration; I25.10 Atherosclerotic heart disease of native coronary artery without angina pectoris; I65.23 Occlusion and stenosis of bilateral carotid arteries; I95.1 Orthostatic hypotension; E78.5 Hyperlipidemia, unspecified; E83.42 Hypomagnesemia; Z90.49 Acquired absence of other specified parts of digestive tract; Z95.0 Presence of cardiac pacemaker; Z82.0 Family history of epilepsy and other diseases of the nervous system; Z79.01 Long term (current) use of anticoagulants; Z79.84 Long term (current) use of oral hypoglycemic drugs; Z86.010 Personal history of colon polyps
CPT/HCPCS: 36415; 38222; 70450; 71045; 77012; 80048; 80053; 81003; 82040; 82272; 82607; 82728; 82962; 83036; 83540; 83550; 83615; 83735; 84439; 84443; 84466; 84484; 84550; 85014; 85018; 85025; 85045; 85060; 85097; 85520; 86850; 86900; 86923; 87040; 88237; 88264; 88280; 88305; 88311; 88313; 93005; 93306; 93880; 99156; 99157; 99285; G0378; J1644; J2250; J3010; J3490; J1815; J2310; J3475; J7030; P9016